=== PATIENT | female | born 1970 | race Caucasian/White ===

== ENCOUNTER 2022-12-12 08:16 | Outpatient (CLI) | payer OTHER, SELFPAY ==
--- NOTE | ~2022-12-12 | CT_ITS ---
EXAMINATION: CT sinus wo con DATE: 12/12/2022 09:05 INDICATION: Chronic sinusitis. TECHNIQUE: Computed tomography (CT) of the paranasal sinuses was performed without intravenous contra st. Iterative reconstruction technique was employed. The dose-length product was 307.56 mGy-cm. COMPARISON: None FINDINGS: The frontal sinuses are clear. There is mild mucosal thickening in the anterior and posteri or ethmoid sinuses. The sphenoid sinuses are clear. There is mild mucosal thickening in the maxillary sinuses near the hiatus semilunaris on either side. The ostiomeatal units are widely patent. There a re bilateral Candida cells. The nasal septum is at midline. IMPRESSION: 1. Mucosal thickening in the paranasal sinuses. Reviewed, dictated and finalized at location A.
--- NOTE | ~2022-12-12 | MM_ITS ---
EXAMINATION: MM screening nyasia BI w darrel HISTORY: Screening mammogram TECHNIQUE: Craniocaudal and mediolateral oblique 3-D tomosynthesis images were obtained and synthetic 2-D images were generated. CAD analysis was submitted and interpreted. COMPARISON: No prior mammogram is available for comparison at this institution. BREAST PARENCHYMAL COMPOSITION: There are scattered areas of fibroglandular density. FINDINGS: There is no evidence of suspicious mass, calcification, or architectural distortion to sugg est malignancy in either breast. There has been no suspicious interval change. IMPRESSION: 1. No mammographic evidence of malignancy. 2. Recommend routine screening mammography in one year. BI-RADS Category 1: Negative Reviewed, dictated and finalized at location B.
--- NOTE | ~2022-12-12 | DEXA_ITS ---
Bone Density Report Name: ARETHA EVANS Age: 52 Sex: Female Ethnicity: White Date of : 1970 Indication: postmenopausal; screening for osteoporosis; hysterectomy; rheumatoid arthritis; Referring Provider: Thai Holden Study: Bone densitometry was performed. Exam Date: December 12, 2022 Accession number: [id number] Bone Density: Region BMD T-score Z-score Classification AP Spine(L1-L4) 0.868 -1.6 -0.8 Osteopenia Femoral Neck (Left) 0.654 -1.8 -0.9 Osteopenia Total Hip (Left) 0.825 -1.0 -0.4 Normal Femoral Neck (Right) 0.732 -1.1 -0.2 Osteopenia Total Hip (Right) 0.824 -1.0 -0.4 Normal Femoral Neck Mean 0.693 -1.4 -0.6 Osteopenia Total Hip Mean 0.825 -1.0 -0.4 Normal World Health Organization criteria for BMD impression classify patients as: Normal (T-score at or above -1.0), Osteopenia (T-score between -1.0 and -2.5), or Osteoporosis (T-score at or below -2.5). 10-year Fracture Risk(1): Major Osteoporotic Fracture 7.5% Hip Fracture 1.4% Reported Risk Factors: [place] (), Neck BMD=0.654, BMI=24.2, smoking, rheumatoid arthritis (1) FRAX(R) Version 3.08. Fracture probability calculated for an untreated patient. Fracture probability may be lower if the patient has received treatment. Clinical Information Provided by Patient: Smokes Has rheumatoid arthritis Has the following medical conditions: Hysterectomy Menopause Age: 24 No regular weight bearing exercise Does not regularly consume dairy products Drinks caffeinated beverages Onset of menses at age 17 Number of children 2 Impression: The patient has low bone mass, based on the Left Femoral Neck T-score. The patient has risk factors, including: smoking. Discussion: BONE DENSITY IS LOW AT ONE OR MORE SKELETAL SITES. This patient's lowest T-score is low at one or more skeletal sites. It meets the World Health Organization's (WHO) criteria for ?low bone mass? (T-score between -1.0 and -2.5). The patient's 10-year risk of fracture as calculated by FRAX is less than the threshold where pharmacological therapy is recommended by the National Osteoporosis Foundation (NOF). However, all treatment decisions require clinical judgment and consideration of individual patient factors, including patient preferences, comorbidities, previous drug use, risk factors not captured in the FRAX model (e.g., frailty, falls, vitamin D deficiency, increased bone turnover, interval significant decline in bone density) and possible under or overestimation of fracture risk by FRAX. The patient should follow a healthful lifestyle (good nutrition with adequate calcium and vitamin D, and appropriate weight-bearing exercise). Follow-Up: Consider repeating this study in 2 to 3 years to reassess this patient's status, or sooner
--- NOTE | ~2022-12-12 | XR_ITS ---
EXAMINATION: XR chest 2V DATE: 12/12/2022 09:06 INDICATION: Shortness of breath. Chronic obstructive pulmonary disease. TECHNIQUE: Frontal and lateral views of the chest were obtained. COMPARISON: None. FINDINGS: The lungs are hyperexpanded with lucencies, consistent with emphysema. No pleural effusion or pneumothorax. The heart size is normal. There are surgical clips in the abdomen. IMPRESSION: 1. Emphysema. Reviewed, dictated and finalized at location A. IMPRESSION: 1. Emphysema.
== END 2022-12-12 08:17 | disposition home or self-care (01) ==
LOC: CHSIMG 08:19
PROVIDERS: PCP Internal Medicine; Visit Provider Internal Medicine
DX: J44.9 Chronic obstructive pulmonary disease, unspecified (principal); M81.0 Age-related osteoporosis without current pathological fracture; Z12.31 Encounter for screening mammogram for malignant neoplasm of breast; Z78.0 Asymptomatic menopausal state; J32.9 Chronic sinusitis, unspecified; M85.89 Other specified disorders of bone density and structure, multiple sites
CPT/HCPCS: 70486; 71046; 77063; 77067; 77080

== ENCOUNTER 2022-12-18 08:20 | Outpatient (CLI) | payer OTHER, SELFPAY | END 2022-12-18 08:21 | disposition home or self-care (01) | LOC: CHSCARD 08:21 | PROVIDERS: PCP Internal Medicine; Visit Provider Internal Medicine | DX: J44.9 Chronic obstructive pulmonary disease, unspecified (principal) | CPT/HCPCS: 94060; 94726; 94729 ==

== ENCOUNTER 2023-03-20 08:00 | Outpatient (CLI) | payer OTHER, SELFPAY ==
[2023-03-20 08:54] LABS: Alanine Aminotransferase 39 U/L (14-59); Albumin Level 4.3 g/dL (3.4-5.0); Alkaline Phosphatase 90 U/L (46-116); Anion Gap 8 mmol/L (8-16); Aspartate Amino Transferase 19 U/L (15-37); Bilirubin,Total 0.3 mg/dL (0.00-1.00); Blood Urea Nitrogen 13 mg/dL (7-18); Calcium 9.4 mg/dL (8.5-10.1); Carbon Dioxide 29 mmol/L (21-32); Chloride 104 mmol/L (98-108); Cholesterol 202 mg/dL (0-200); Creatine Kinase 72 U/L (26-192); Estimated Glomerular Filt Rate > 60; Glucose 98 mg/dL (70-99); HDL Direct 75 mg/dL (40-60); LDL Cholesterol Calculated 107 mg/dL (<130); Osmolality Calculated 292 mOsm/kg (285-295); Potassium 4.5 mmol/L (3.5-5.1); Sodium 141 mmol/L (136-145); Total Protein 7.1 g/dL (6.4-8.2); Triglycerides 102 mg/dL (0-150)
== END 2023-03-20 08:01 | disposition home or self-care (01) ==
LOC: CHSLAB 08:02
PROVIDERS: PCP Internal Medicine; Visit Provider Internal Medicine
DX: E78.2 Mixed hyperlipidemia (principal)
CPT/HCPCS: 36415; 80053; 80061; 82550

== ENCOUNTER 2023-12-26 15:11 | Emergency (ER) | payer OTHER, SELFPAY ==
--- NOTE | ~2023-12-26 | CT_ITS ---
EXAMINATION: CT facial bones wo con DATE: 12/26/2023 15:57 INDICATION: Head injury. Left cheek pain. TECHNIQUE: Computed tomography (CT) of the facial bones and maxillofacial region was performed withou t intravenous contrast. Automated exposure control and iterative reconstruction technique were employ ed. The dose-length product was 263.23 mGy-cm. COMPARISON: CT sinuses 12/12/2022 FINDINGS: The orbits are normal. There is left cheek soft tissue swelling. Bone alignment is normal. No fracture. There is mild mucosal thickening in the ethmoid sinuses. The mastoid air cells are nikki l. IMPRESSION: 1. No fracture. Reviewed, dictated and finalized at location A. IMPRESSION: 1. No fracture.
--- NOTE | ~2023-12-26 | CT_ITS ---
EXAMINATION: CT brain wo con DATE: 12/26/2023 15:57 INDICATION: Head injury. TECHNIQUE: Computed tomography (CT) of the head was performed without intravenous contrast. The mA wa s adjusted according to patient size. Iterative reconstruction technique was employed. The dose-lengt h product was 605.33 mGy-cm. COMPARISON: None FINDINGS: There is no intracranial hemorrhage, acute infarction, or abnormal intracranial mass lesion . The ventricles are normal in size. There is mild mucosal thickening in the ethmoid sinuses. The mas toid air cells are normal. The orbits are normal. IMPRESSION: 1. Normal brain. Reviewed, dictated and finalized at location A. IMPRESSION: 1. Normal brain.
[2023-12-26 15:16] VITALS: BP 139/95; PULSE 77; RESP 18; TEMP 36.7; O2SAT 97
[2023-12-26] MEDS: Please add drug allergy info to patient profile. 1 EACH XX (16:05)
[2023-12-26] MEDS: KETOROLAC (*BKC) 60 MG/2 ML VIAL IM (16:06)
--- NOTE | 2023-12-26 16:30 | ED.HA ---
HPI - Headache General Chief Complaint: Headache Stated Complaint: workplace injury; left eye bruising/teeth pain Time Seen by Provider: 12/26/23 15:29 Source: patient Mode of arrival: ambulatory Limitations: no limitations History of Present Illness HPI Narrative: this is a 53-year-old female that fell at work on Saturday striking her head and left facial area causing some bruising otherwise patient did not lose consciousness there was no bleeding no epistaxis no bleeding from her ears no nausea or vomiting. Rates her pain about a 4/10. There is no neck pain has good range of motion in her neck. MD elicited complaint: headache Pertinent past history: recent trauma Onset (ago): day(s) Onset description: suddenly Location: left Severity: mild Pain scale (0-10): 4 Quality & Timing: aching Related Data Home Medications Medication Instructions Recorded Confirmed escitalopram oxalate 10 mg tablet 5 mg PO DAILY 12/26/23 12/26/23 rosuvastatin 5 mg tablet 5 mg PO DAILY 12/26/23 12/26/23 Allergies Allergy/AdvReac Type Severity Reaction Status Date / Time No Known Allergies Allergy Verified 12/26/23 16:07 Review of Systems Review of Systems: All systems reviewed & are unremarkable except as noted in HPI and below PMFSH Past Medical History Medical History Patient denies medical problems Exam Const: General: healthy appearing, no acute distress and alert Nutritional Appearance: well nourished Orientation/consciousness: patient oriented x3 Limitations: no limitations HENMT: Head: normal to inspection Ears: external ears normal Eyes: Conjunctivae: conjunctivae normal Pupils: Equal, round and reactive pupils present EOM: EOMs intact bilaterally Neck: Neck: normal visual inspection, no lymphadenopathy and no meningeal signs Chest: Chest palpation & inspection: normal inspection of the chest Resp: Effort & Inspection: normal respiratory effort Auscultation: clear to auscultation bilaterally Cardio: Rate: regular rate Rhythm: regular rhythm GI: GI Palp: Yes Soft to palpation Auscultation: normal bowel sounds Skin: Wounds: wounds noted Other: bruising under her left eye with no step-off Extrem: General: normal to inspection and no clubbing, cyanosis or edema Psych: Mental Status: mental status grossly normal Affect: normal affect Course Course Emergency Course: patient received Toradol which after reassessment has improved her pain level CT scan brain and facial bones with no acute abnormalities. Vital Signs Vital signs: Vital Signs Temperature 36.7 C 12/26/23 15:16 Pulse Rate 77 12/26/23 15:16 Respiratory Rate 18 12/26/23 15:16 Blood Pressure 139/95 H 12/26/23 15:16 Pulse Oximetry 97 12/26/23 15:16 Oxygen Delivery Room Air 12/26/23 15:16 Temperature 36.7 C 12/26/23 15:16 Pulse Rate 77 12/26/23 15:16 Respiratory Rate 18 12/26/23 15:16 Blood Pressure 139/95 H 12/26/23 15:16 Pulse Oximetry 97 12/26/23 15:16 Oxygen Delivery Room Air 12/26/23 15:16 Critical Care Time Critical Care Time Critical Care Time: No Discharge Plan Discharge Clinical Impression: Headache Qualifiers: Headache type: other headache syndrome Qualified Code(s): G44.89 - Other headache syndrome Contusion Qualifiers: Encounter type: initial encounter Contusion area: head Contusion of head detail: periocular area Laterality: left Qualified Code(s): S00.12XA - Contusion of left eyelid and periocular area, initial encounter Patient Disposition: Home, Self-Care Condition: Stable Instructions: Antibiotic Form, Head Injury (ED) Additional Instructions: advised to take medicine as prescribed and follow up with primary if symptoms persist or worsen. Prescriptions: New tramadol 50 mg tablet 50 mg PO Q6H PRN (Reason: pain) Qty: 20 0RF No Action escitalopram oxalate 10 mg tablet 5 mg PO D
[2023-12-26 16:48] VITALS: BP 109/77; PULSE 69; RESP 18; TEMP 36.9; O2SAT 97
== END 2023-12-26 16:48 | disposition home or self-care (01) ==
PROVIDERS: Emergency Provider Emergency Medicine; PCP Internal Medicine
DX: S00.12XA Contusion of left eyelid and periocular area, initial encounter (principal); G44.89 Other headache syndrome; W19.XXXA Unspecified fall, initial encounter
CPT/HCPCS: 70450; 70486; 96372; 99284; J1885